=== PATIENT | male | born 1955 ===

== ENCOUNTER 2016-08-25 19:25 | Observation (INO) | payer SELFPAY ==
[2016-08-25 19:51] VITALS: BP 132/78; PULSE 54; RESP 18; TEMP 97.8; O2SAT 100
[2016-08-25] MEDS ORDERED: Iohexol 240 (50 ml) PO ONE (20:23)
[2016-08-25] MEDS ORDERED: Sodium Chloride 0.9% 1,000 ML IV STA ×2 (20:24→22:20)
[2016-08-25 21:18] LABS: BASO % 0.2 % (0.0-2.0); EOS % 0.2 % (0.0-4.0); HEMOGLOBIN 13.9 g/dL (12.0-18.0); LYMPH # 1.3 K/uL (1.0-4.3); LYMPH % 12.4 % (20.0-40.0); MEAN CELL VOLUME 89.6 fl (80.0-94.0); MEAN CORPUSCULAR HEMOGLOBIN 30.2 pg (27.0-31.0); MEAN CORPUSCULAR HGB CONC 33.7 g/dL (33.0-37.0); MEAN PLATELET VOLUME 7.8 fl (7.2-11.7); MONO # 0.5 K/uL (0.0-0.8); MONO % 4.9 % (0.0-10.0); NEUT # 8.3 K/uL (1.8-7.0); NEUT % 82.3 % (50.0-75.0); RBC 4.6 Mil/uL (4.40-5.90); RED CELL DISTRIBUTION WIDTH 13.7 % (11.5-14.5); WHITE BLOOD COUNT 10.1 K/uL (4.8-10.8)
[2016-08-25 21:25] LABS: INR 1.1 (0.9-1.2); PARTIAL THROMBOPLASTIN TIME 30.1 Seconds (25.6-37.1); PROTHROMBIN TIME 11.9 Seconds (9.8-13.1)
[2016-08-25 21:29] LABS: ALB/GLOB RATIO 1.2 (1.0-2.1); ALBUMIN 4.4 g/dL (3.5-5.0); CALCIUM 9.6 mg/dL (8.4-10.2); MAGNESIUM 1.9 MG/DL (1.6-2.3)
--- NOTE | 2016-08-25 21:36 | ED PDOC ---
HPI: Abdomen Time Seen by Provider: 08/25/16 20:02 Chief Complaint (Nursing): Abdominal Pain Chief Complaint (Provider): Abdominal pain History Per: Patient History/Exam Limitations: no limitations Onset/Duration Of Symptoms: Days (x1) Additional Complaint(s): Matt New, 61 year old male with a past medical history inclusive of Ulcerative Colitis and hypertension, presents to the ED for abdominal pain beginning last night and acutely worsening at 13:00 today. The patient reports the pain is diffuse, associated with 3 episodes of non-bilious, non-bloody vomit. He states having a subjective fever and chills with normal stool and urine output. The patient took carson alonzo and baking soda with lemon, without relief. Of note, the patient has not taken his medications for ulcerative colitis for the past 2 months. PMD: [facility] Past Medical History Reviewed: Historical Data, Nursing Documentation, Vital Signs Vital Signs: Last Vital Signs Temp 97.8 F 08/25/16 19:49 Pulse 54 L 08/25/16 19:49 Resp 18 08/25/16 19:49 BP 132/78 08/25/16 19:49 Pulse Ox 100 08/26/16 02:40 - Medical History PMH: HTN Other PMH: ulcerative colitis - Surgical History Surgical History: Tonsillectomy - Family History Family History: States: Diabetes, Hypertension - Social History Current smoker - smoking cessation education provided: No Ex-Smoker (has not smoked in the last 12 months): No Alcohol: Social (once every 2 weeks) - Home Medications Home Medications: Ambulatory Orders Medication Instructions Recorded Indomethacin [Indocin] 25 mg PO Q8 #20 cap 12/12/14 traMADol [Ultram] 50 mg PO Q8 #15 tab 08/26/16 - Allergies Allergies/Adverse Reactions: Allergies Allergy/AdvReac Type Severity Reaction Status Date / Time No Known Allergies Allergy Verified 12/12/14 11:35 Review of Systems ROS Statement: Except As Marked, All Systems Reviewed And Found Negative Constitutional: Positive for: Fever (subjective ), Chills Gastrointestinal: Positive for: Vomiting (non-bilious, nonbloody), Abdominal Pain (diffuse ). Negative for: Diarrhea, Constipation Genitourinary Male: Negative for: Dysuria, Frequency, Incontinence Physical Exam - Reviewed Nursing Documentation Reviewed: Yes Vital Signs Reviewed: Yes - Physical Exam Appears: Positive for: Non-toxic, In Acute Distress (moderate painful distress) Head Exam: Positive for: ATRAUMATIC, NORMAL INSPECTION, NORMOCEPHALIC Skin: Positive for: Normal Color, Warm, Dry Eye Exam: Positive for: EOMI, Normal appearance, PERRL ENT: Positive for: Pharynx Is (clear), TM Is/Are (dry mucous membranes ) Neck: Positive for: Normal, Painless ROM, Supple Cardiovascular/Chest: Positive for: Regular Rate, Rhythm, Chest Non Tender. Negative for: Murmur Respiratory: Positive for: Normal Breath Sounds. Negative for: Respiratory Distress Gastrointestinal/Abdominal: Positive for: Soft, Tenderness (diffusely tendor), Distended (mild distension ). Negative for: Mass, Guarding, Rebound Back: Positive for: Normal Inspection Extremity: Positive for: Normal ROM. Negative for: Deformity Lymphatic: Negative for: Adenopathy Neurologic/Psych: Positive for: Alert, Oriented. Negative for: Motor/Sensory Deficits - Laboratory Results Result Diagrams: 08/25/16 20:50 08/25/16 20:50 - ECG O2 Sat by Pulse Oximetry: 100 (RA) Pulse Ox Interpretation: Normal Medical Decision Making Medical Decision Making: Impression: Abdominal Pain Differential diagnosis includes but is not limited to: Exacerbation of ulcerative colitis, Gastroenteritis, Colitis, Obstruction Plan: * CT Abd & Pelvis PO & IV Contrast Stat * COMP Metabolic Panel Stat * Lact Acid, Plasma Stat * Lipase Stat * Magnesium Stat * Phosphorus Stat * ED Urine Dipstick (POC) Stat * CBC (With Differential) Stat * Partial Thromboplastin Time [COAG] Stat * Prothrombin Time [COAG] Stat * Blood Culture Stat * IV Insertion (Saline Lock) Stat * Morphine 4 mg IVP Stat * Sodium Chloride 0.9% 1,000 ml IV 1,000 mls/hr * Omnipaque 240 (50 mL) 50 ml PO Once * Zofran Inj 8 mg IV Stat * Admit to Hospital Routine Scribe Attestation: Documented by Ragini Young, acting as a scribe for Sera Moreno MD. Provider Scribe Attestation: All medical record entries made by the Scribe were at my direction and personally dictated by me. I have reviewed the chart and agree that the record accurately reflects my personal performance of the history, physical exam, medical decision making, and the department course for this patient. I have also personally directed, reviewed, and agree with the discharge instructions and disposition. Disposition - Clinical Impression Clinical Impression: Ulcerative colitis - Disposition Disposition: Transfer of Care Disposition Time: 20:20 Condition: STABLE Patient Signed Over To: Danny Kim Handoff Comments: Pending ER workup, reassessment and final ER disposition
[2016-08-25] MEDS ORDERED: Iohexol 240 (50 ml) ONE (21:49)
[2016-08-25] MEDS ORDERED: Sodium Chloride 0.9% 50 ML IV ONE (23:54)
[2016-08-25] MEDS ORDERED: Iohexol 300 100 ML IJ ONE (23:54)
--- NOTE | 2016-08-26 01:16 | ED PDOC ---
- Laboratory Results Result Diagrams: 08/25/16 20:50 08/25/16 20:50 - ECG O2 Sat by Pulse Oximetry: 100 (RA) Pulse Ox Interpretation: Normal Medical Decision Making Medical Decision Making: Patient signed out to provider from Dr. Moreno at [address] Abdomen and Pelvis With Intravenous Contrast IMPRESSION: Edematous narrowing from the descending colon to the rectum, findings consistent with patient's known history of ulcerative colitis. Persistent paraumbilical hernia. Spoke with patient regarding CT results and bloodwork, likely non-infectious flareup, patient feeling better, admission offered to patient, patient preferred to go home and followup with his GI as outpatient. Tramadol prescription given, discussion with patient had regarding addictive potential, risks and alternatives discussed including tylenol or motrin. [facility] searched with nearby states, no prescriptions found. 4-5 day supply of tramadol given to patient. Scribe Attestation Documented by Airam Lorenzo acting as a scribe for Danny Kim MD. Provider Attestation All medical record entries made by the Scribe were at my direction and personally dictated by me. I have reviewed the chart and agree that the record accurately reflects my personal performance of the history, physical exam, medical decision making, and the department course for this patient. I have also personally directed, reviewed, and agree with the discharge instructions and disposition. Disposition - Clinical Impression Clinical Impression: Ulcerative colitis - POA Present On Arrival: None - Disposition Disposition: Routine/Home Disposition Time: 02:00 Condition: STABLE
--- NOTE | 2016-08-26 10:32 | CT ---
PROCEDURE: CT Abdomen and Pelvis with contrast HISTORY: ulcerative colitis severe pain COMPARISON: 01/27/2013 TECHNIQUE: Contrast dose: 90 mL Omnipaque 300 Radiation dose: Total exam DLP = 886.35 mGy-cm. This CT exam was performed using one or more of the following dose reduction techniques: Automated exposure control, adjustment of the mA and/or kV according to patient size, and/or use of iterative reconstruction technique. FINDINGS: LOWER THORAX: Minimal dependent subsegmental atelectasis in both lower lobes. LIVER: Unremarkable. No gross lesion or ductal dilatation. GALLBLADDER AND BILE DUCTS: Unremarkable. PANCREAS: Unremarkable. No gross lesion or ductal dilatation. SPLEEN: Unremarkable. ADRENALS: Unremarkable KIDNEYS AND URETERS: Mid left renal cortical cyst, 1.7 cm. Left lower pole renal cortical cyst, 1.3 cm. Comparison to prior noncontrast CT examination is limited. Multiple small left parapelvic renal cysts. No calculus or hydronephrosis is appreciated. VASCULATURE: Unremarkable. No aortic aneurysm. BOWEL: No mural thickening. There is submucosal fat deposition seen in the rectosigmoid colon consistent with history of ulcerative colitis. No area of acute inflammation or bowel obstruction is evident. APPENDIX: The appendix is distended up to a diameter of 14 mm. There is no periappendiceal inflammatory change and no periappendiceal abscess identified. There is no free air. Nevertheless, the findings are concerning for acute appendicitis. There is also some focal mural thickening of the cecal apex about the appendiceal orifice. PERITONEUM: No ascites. No pneumoperitoneum. There is a small umbilical hernia containing only fat. No herniated bowel. LYMPH NODES: Unremarkable. No enlarged lymph nodes. BLADDER: Unremarkable. REPRODUCTIVE: Unremarkable prostate. BONES: No acute fracture. OTHER FINDINGS: None. IMPRESSION: Findings concerning for acute appendicitis. No abscess. No pneumoperitoneum. No bowel obstruction. Circumferential submucosal fat seen in rectosigmoid colon consistent with history of ulcerative colitis. Additional minor findings as above. Preliminary interpretation of this examination was reported by [facility] at 12:59 a.m. on 08/26/2016. There is discordance of this report with the preliminary interpretation. Findings discussed with Agapito Zamora in emergency room at 10:26 a.m. on 08/26/2016
== END 2016-08-26 02:21 | disposition home or self-care (01) ==
LOC: H.ER 19:25 → H.ERHOLD 20:26 → H.EROBSV 22:42
PROVIDERS: ADMIT Emergency Medicine; ATTEND Emergency Medicine
DX: K51.90 Ulcerative colitis, unspecified, without complications (principal); I10 Essential (primary) hypertension; K42.9 Umbilical hernia without obstruction or gangrene
CPT/HCPCS: 74177; 80053; 83605; 83690; 83735; 84100; 85025; 85610; 85730; 87040; 96361; 96374; 96375; 96376; 99282; G0378; J2270; J2405; J7040; Q9966; Q9967